=== PATIENT | female | born 1995 | race Caucasian/White ===

== ENCOUNTER 2024-02-20 19:06 | Observation (INO) | payer OTHER ==
[~2024-02-20] VITALS: Ht 157.5 cm; Wt 91.2 kg
[2024-02-20 19:07] VITALS: BP 122/80; PULSE 97; RESP 18; TEMP 98
--- NOTE | 2024-02-20 19:10 | NUR ---
REPORT TO JES
[2024-02-20 19:32] LABS: APPEARANCE,URINE CLEAR (CLEAR); BILIRUBIN,URINE NEGATIVE (NEGATIVE); COLOR,URINE COLORLESS (YELLOW); GLUCOSE, URINE (UA) NEGATIVE (NEGATIVE); KETONES,URINE NEGATIVE (NEGATIVE); LEUKOCYTE ESTERASE ,URINE NEGATIVE Leu/uL (NEGATIVE); NITRATE,URINE NEGATIVE (NEGATIVE); OCCULT BLOOD,URINE NEGATIVE (NEGATIVE); PH,URINE 6.5 (5.0-8.0); PROTEIN,URINE NEGATIVE (NEGATIVE); UROBILINOGEN,URINE 0.2 mg/dL (0.2-1.0)
[2024-02-20 19:41] LABS: ADD UA MICROSCOPIC NO
[2024-02-20] MEDS: LACTATED RINGERS 1000ML 1,000 ML IV SCH (19:52)
--- NOTE | 2024-02-20 20:33 | HMCIMG ---
US FBP WO NON-STRESS HISTORY: Decreased COMPARISON: None TECHNIQUE: Ultrasound biophysical profile study was performed. FINDINGS: Patient scored a total of 8 points with 2 points each for breathing movements, gross body movements, tone and amniotic fluid volume. Fetus is in cephalic presentation with longitudinal lie. heart rate is 135 beats per minute. Amniotic fluid index is 9.33 centimeter. Placenta is located anteriorly towards right laterally. IMPRESSION: 1. Normal ultrasound biophysical profile study.
== END 2024-02-20 22:05 | disposition home or self-care (01) ==
LOC: EDH 19:06 → LDH 19:07
PROVIDERS: ADMIT Obstetrics & Gynecology; ATTEND Obstetrics & Gynecology
DX: O36.8130 Decreased fetal movements, third trimester, not applicable or unspecified (principal); Z3A.35 35 weeks gestation of pregnancy; Z88.2 Allergy status to sulfonamides; Z88.5 Allergy status to narcotic agent; Z87.891 Personal history of nicotine dependence; Z79.899 Other long term (current) drug therapy
CPT/HCPCS: 96360; 81003; 76819; G0378 ×3; G0379; J7120

== ENCOUNTER 2024-02-28 10:07 | Observation (INO) | payer OTHER ==
[~2024-02-28] VITALS: Ht 157.5 cm; Wt 94.9 kg
[2024-02-28 10:11] VITALS: BP 126/73; PULSE 95; RESP 16; TEMP 98.2; O2SAT 98
[2024-02-28] MEDS ORDERED: LACTATED RINGERS 1000ML 1,000 ML IV SCH (10:30)
[2024-02-28 10:57] LABS: APPEARANCE,URINE CLEAR (CLEAR); BILIRUBIN,URINE NEGATIVE (NEGATIVE); COLOR,URINE LIGHT-YELLOW (YELLOW); GLUCOSE, URINE (UA) NEGATIVE (NEGATIVE); KETONES,URINE NEGATIVE (NEGATIVE); LEUKOCYTE ESTERASE ,URINE 500 Leu/uL (NEGATIVE); NITRATE,URINE NEGATIVE (NEGATIVE); OCCULT BLOOD,URINE NEGATIVE (NEGATIVE); PH,URINE 6.5 (5.0-8.0); PROTEIN,URINE NEGATIVE (NEGATIVE); UROBILINOGEN,URINE 0.2 mg/dL (0.2-1.0)
--- NOTE | 2024-02-28 11:13 | HMCIMG ---
US FBP WO NON-STRESS HISTORY: Nonreactive NST COMPARISON: None TECHNIQUE: Ultrasound biophysical profile study was performed. FINDINGS: Patient scored a total of 8 points with 2 points each for breathing movements, gross body movements, tone and amniotic fluid volume. Fetus is in cephalic presentation with longitudinal lie. heart rate is 178 beats per minute. Amniotic fluid index is 10.4 centimeter. Placenta is located anteriorly. IMPRESSION: 1. Normal ultrasound biophysical profile study.
[2024-02-28 11:14] LABS: ADD UA MICROSCOPIC YES
[2024-02-28 11:16] LABS: BACTERIA,URINE RARE /HPF (None Seen); MUCUS,URINE RARE LPF (None Seen); OTHER CASTS, URINE 3 /LPF (None Seen); RBC,URINE 0-1 /HPF (0-1); SQUAMOUS EPITHELIAL CELL,UR FEW /HPF (0-2)
[2024-02-28] MEDS ORDERED: FENTanyl CITRate PF 50 MCG/1 ML 2ML VIAL ONE (16:07)
== END 2024-02-28 13:00 | disposition home or self-care (01) ==
LOC: EDH 10:07 → LDH 10:22
PROVIDERS: ADMIT Obstetrics & Gynecology; ATTEND Obstetrics & Gynecology
DX: Z36.89 Encounter for other specified antenatal screening (principal); Z3A.36 36 weeks gestation of pregnancy; Z88.2 Allergy status to sulfonamides; Z88.5 Allergy status to narcotic agent; Z87.891 Personal history of nicotine dependence; Z79.899 Other long term (current) drug therapy
CPT/HCPCS: 87086; 81001; 76819; G0378 ×3; G0379; J3010

== ENCOUNTER 2024-03-22 19:11 | Inpatient (IN) | payer OTHER ==
[~2024-03-22] VITALS: Ht 160 cm; Wt 94.3 kg
[2024-03-22] MEDS ORDERED: acetaMINOPHEN 500 MG TABLET PO PRN (19:30)
[2024-03-22 20:00] LABS: APPEARANCE,URINE CLEAR (CLEAR); BILIRUBIN,URINE NEGATIVE (NEGATIVE); COLOR,URINE LIGHT-YELLOW (YELLOW); GLUCOSE, URINE (UA) NEGATIVE (NEGATIVE); KETONES,URINE NEGATIVE (NEGATIVE); LEUKOCYTE ESTERASE ,URINE 250 Leu/uL (NEGATIVE); NITRATE,URINE NEGATIVE (NEGATIVE); OCCULT BLOOD,URINE NEGATIVE (NEGATIVE); PROTEIN,URINE 10 mg/dL (NEGATIVE); UROBILINOGEN,URINE 0.2 mg/dL (0.2-1.0)
[2024-03-22 20:01] LABS: ADD UA MICROSCOPIC YES
[2024-03-22 20:03] LABS: BACTERIA,URINE RARE /HPF (None Seen); MUCUS,URINE RARE LPF (None Seen); SQUAMOUS EPITHELIAL CELL,UR FEW /HPF (0-2)
[2024-03-22 20:03] LABS: HEMATOCRIT 30.8 % (36-48); MEAN CORPUSCULAR HEMOGLOBIN 29.2 pg (27.0-33.0); MEAN CORPUSCULAR HGB CONC 33.4 g/dL (32.0-36.0); MEAN CORPUSCULAR VOLUME 87.3 fL (79-99); RED BLOOD CELL COUNT(AUTO) 3.53 MIL/uL (4.00-5.50); RED CELL DISTRIBUTION WIDTH 14.7 % (11.0-15.5); WHITE BLOOD COUNT (AUTO) 8.3 K/uL (4.8-10.8)
[2024-03-22] MEDS: DINOPROSTONE 10 MG VAGINAL SUPP VG ONE (20:20)
[2024-03-22] MEDS: LACTATED RINGERS 1000ML 1,000 ML IV PRN (20:27)
[2024-03-22 21:02] LABS: HIV 1&2 ANTIBODY Non-Reactive (Negative); HIV-1 p24 Antigen Non-Reactive (Negative)
[2024-03-23] MEDS: PROMETHAZINE HCL 25 MG/ML 1ML AMPULE IM PRN (01:11)
[2024-03-23] MEDS: MEPERIDINE-PF 50 MG/ML SYG IVP PRN (01:13)
[2024-03-23] MEDS ORDERED: MISOPROSTOL 200 MCG TABLET ONE (09:07)
[2024-03-23] MEDS ORDERED: ondanSETRON 4MG INJ ONE (09:24)
[2024-03-23] MEDS ORDERED: phenylEPHRINE HCL 10 MG/ML 1ML VIAL IV ONE (09:24)
[2024-03-23] MEDS ORDERED: FENTanyl CITRate PF 50 MCG/1 ML 2ML VIAL ONE (09:24)
[2024-03-23] MEDS ORDERED: morPHINE PF 100MG/10ML AMP IV ONE (09:24)
[2024-03-23] MEDS ORDERED: CALDOLOR 800MG+NS 250ML 250 ML IV PRN (09:30)
[2024-03-23] MEDS ORDERED: ceFAZolin SODIUM 1 GM VIAL IVP PRN (09:30)
[2024-03-23] MEDS ORDERED: 0.9%NACL 10ML VIAL IVP PRN (10:30)
[2024-03-23] MEDS ORDERED: MEPERIDINE-PF 75 MG/ML SYG IM PRN (10:30)
--- NOTE | 2024-03-23 12:04 | OP ---
DATE OF PROCEDURE: 03/23/2024 PREOPERATIVE DIAGNOSES: * Intrauterine at 40 weeks. * Failure to progress. POSTOPERATIVE DIAGNOSES: * Intrauterine at 40 weeks. * Failure to progress. PROCEDURE: Primary low transverse section. SURGEON: Rob Reynolds MD ANESTHESIA: Spinal. COUNTS: Complete. COMPLICATIONS: None. DRAINS: Jones. SPECIMENS: None. ESTIMATED BLOOD LOSS: Less than 1000 mL. FINDINGS: Single live born baby boy, weighing 8 pounds and 4 ounces with Apgars of 9 and 9. The amniotic fluid was clear. There were two nuchal cords. The uterus, fallopian tubes and ovaries were unremarkable. DESCRIPTION OF PROCEDURE: Under spinal anesthesia, the patient was scrubbed and draped in the usual supine position. The abdomen was entered through a Pfannenstiel incision. A bladder flap was developed followed by a low transverse uterine incision. The baby was delivered in a cephalic presentation without difficulty. The umbilical cord was clamped and cut and the baby given to the nurse. The placenta was delivered spontaneously in its entirety and the uterus displayed good tone. The uterine incision was repaired with a running lock of 1 Vicryl. The pelvic cavity was thoroughly irrigated with normal saline solution and cleaned of all debris and clots. The fascia was closed with a continuous 1 Vicryl. The skin incision thoroughly irrigated with normal saline solution and all the bleeding points controlled with the Bovie electrocautery. The skin was then closed with Insorb mariya. The patient tolerated the procedure well and without evidence of any complications. She was transferred to in stable condition. TID: [id number] RECEIPT: [id number]
[2024-03-23] MEDS: LORATAdine 10 mg 10 MG TABLET PO PRN (12:33)
[2024-03-23] MEDS ORDERED: DiphenhydrAMINE HCL 50 MG/ML VIAL ONE (13:36)
[2024-03-23] MEDS: DiphenhydrAMINE HCL 50 MG/ML VIAL IV ONE ×2 (13:39→15:33)
[2024-03-23] MEDS: DEXTROSE 5 %-0.45 % NACL 1,000 ML IV PRN (15:23)
[2024-03-23 16:00] VITALS: BP 97/57; PULSE 81; RESP 18; TEMP 98.2
[2024-03-23] MEDS: CALDOLOR 800MG+NS 250ML 250 ML IV SCH (17:24)
--- NOTE | 2024-03-23 18:57 | NUR ---
REPORT TO Patricia QUEVEDO RN
[2024-03-23] MEDS ORDERED: BisaCODYL 10 MG SUPP.RECT RC PRN (19:30)
[2024-03-23] MEDS ORDERED: LANOLIN 30GM OINTMENT TP PRN (19:30)
[2024-03-23] MEDS ORDERED: HYDROcodone/APAP 5/325 1 TAB TABLET PO PRN (19:30)
[2024-03-23] MEDS ORDERED: acetaMINOPHEN 500 MG TABLET PO PRN (19:30)
[2024-03-23] MEDS ORDERED: acetaMINOPHEN WITH coDEINE 1 TAB TAB PO PRN (19:30)
[2024-03-23 20:24] VITALS: BP 99/52; PULSE 70; RESP 18; TEMP 98.4
[2024-03-23] MEDS: doCUSate SODIUM 100 MG CAP PO SCH (23:23)
[2024-03-23] MEDS: SIMETHICONE 80 MG TAB.CHEW PO PRN (23:23)
[2024-03-23 23:56] VITALS: BP 91/45; PULSE 86; RESP 18; TEMP 98.4
--- NOTE | 2024-03-23 23:58 | NUR ---
Assisted patient to ambulate around nurse station, she has tolerated this well. Linens changed out, once back in room assisted her to the chair she wishes to sit for a bit before getting back in bed. Patient reminded that we do have pain medications available should she desire, next mat is not due until 2 am, but she has prn orders for demerol if needed. Addendum: 03/24/24 at 0000 by FREDI QUEVEDO RN RN Amended: Links added.
[2024-03-24] MEDS: MEPERIDINE-PF 50 MG/ML SYG IM PRN (00:45)
[2024-03-24] MEDS: PROMETHAZINE HCL 25 MG/ML 1ML AMPULE IM PRN (00:46)
[2024-03-24] MEDS ORDERED: MEPERIDINE-PF 25 MG/ML SYG IM PRN (01:00)
[2024-03-24 05:45] VITALS: BP 98/54; PULSE 82; RESP 17; TEMP 98.4
--- NOTE | 2024-03-24 05:45 | NUR ---
Dressing removed at this time. Incision is well approximated, no redness noted, no drainage noted. Area cleansed with chloraprep pad. Addendum: 03/24/24 at 0620 by FREDI QUEVEDO RN RN Amended: Links added.
[2024-03-24 07:18] LABS: HEMATOCRIT 27.9 % (36-48); MEAN CORPUSCULAR HEMOGLOBIN 28.9 pg (27.0-33.0); MEAN CORPUSCULAR HGB CONC 32.3 g/dL (32.0-36.0); MEAN CORPUSCULAR VOLUME 89.7 fL (79-99); RED BLOOD CELL COUNT(AUTO) 3.11 MIL/uL (4.00-5.50); WHITE BLOOD COUNT (AUTO) 10.7 K/uL (4.8-10.8)
[2024-03-24 08:01] VITALS: BP 114/64; PULSE 77; RESP 18; TEMP 98
[2024-03-24] MEDS: ibuPROFEN 600 MG TABLET PO PRN (08:42)
--- NOTE | 2024-03-24 09:30 | NUR ---
VOIDED ASSISTED UP TO BR, STEADY GAIT OBSERVED, VOIDED WELL W/O DIFFICULTY, 500CC. PERICARE GIVEN, UNDERPAD CHANGED. ASSISTED TO BEDSIDE CHAIR. AT BEDSIDE, CALL ROBLES WITHIN REACH.
[2024-03-24 10:27] LABS: RAPID PLASMA REAGIN NONREACTIVE (NONREACTIVE)
[2024-03-24 12:51] VITALS: BP 113/69; PULSE 82; RESP 18; TEMP 98.3
--- NOTE | 2024-03-24 14:32 | NUR ---
DISCHARGE DISCHARGED VIA WHEELCHAIR WITH IN ARMS, DEPARTED IN STABLE CONDITION VIA PRIVATE VEHICLE WITH SPOUSE ALONGSIDE.
== END 2024-03-24 14:30 | disposition home or self-care (01) | DRG 788 ==
LOC: LDH 19:11 → WSH 03-23 12:54
PROVIDERS: ADMIT Obstetrics & Gynecology; ATTEND Obstetrics & Gynecology
PROC: 10D00Z1 Extraction of Products of Conception, Low, Open Approach (ICD-10-PCS; principal; 2024-03-23 09:20)
DX: O48.0 Post-term pregnancy (principal); O62.2 Other uterine inertia; O69.81X0 Labor and delivery complicated by cord around neck, without compression, not applicable or unspecified; Z37.0 Single live birth; Z3A.40 40 weeks gestation of pregnancy
CPT/HCPCS: 36415; 59510; 81001; 85027; 86592; 86701; 86850; 86900; 86901; 87086; 87340; 87390; A4344; G0378; J0690; J1200; J1741; J2175; J2274; J2371; J2405; J2550; J2590; J3010; J7120; A4248; A4649